=== PATIENT | female | born 1950 | race Caucasian/White ===

== ENCOUNTER → 2020-08-09 | Outpatient (CLI) | payer OTHER ==
[~2020-08-09] MED LIST: BUPR150ER PO; CYCL10 PO; DOXA2 PO; GABA600 PO; HYDACE10B PO; Norco 5-325 Ta1 EACH PO; Omeprazole20 M1 PO; TRIA80TC TOP
[2020-08-09 13:03] LABS: U Amphetamine Screen Not Detected; U Barbituate Screen Not Detected; U Benzodiazapine Screen Not Detected; U Buprenorphine Screen Not Detected; U Cannabinoids Screen Not Detected; U Cocaine Screen Not Detected; U Methadone Screen Not Detected; U Methamphetamine Screen Not Detected; U Opiates Screen Not Detected; U Oxycodone Screen Not Detected; U Phencyclidine Screen Not Detected; U Propoxyphene Screen Not Detected
== END | disposition home or self-care (01) ==
LOC: LAB SHORT 10:25 → LAB 10:25
PROVIDERS: Family Medicine
DX: Z51.81 Encounter for therapeutic drug level monitoring (principal); Z79.891 Long term (current) use of opiate analgesic

== ENCOUNTER → 2022-07-16 | Outpatient (CLI) | payer OTHER ==
[2022-07-16 17:12] LABS: U Amphetamine Screen Not Detected; U Barbituate Screen Not Detected; U Benzodiazapine Screen Not Detected; U Buprenorphine Screen Not Detected; U Cannabinoids Screen Not Detected; U Cocaine Screen Not Detected; U Methadone Screen Not Detected; U Methamphetamine Screen Not Detected; U Opiates Screen Not Detected; U Oxycodone Screen Not Detected; U Phencyclidine Screen Not Detected; U Propoxyphene Screen Not Detected
== END ==
LOC: LAB SHORT 09:15 → LAB 09:15
PROVIDERS: Family Medicine
DX: Z51.81 Encounter for therapeutic drug level monitoring (principal); Z79.891 Long term (current) use of opiate analgesic